=== PATIENT | female | born 1965 | race Asian ===

== ENCOUNTER → 2019-01-22 | Day surgery (SDC) | payer OTHER ==
--- NOTE | 2019-01-23 17:17 | PATH ---
Cytology Non-Gynecological Report Patient Name: NICHOLAS EMERY [facility]. Rec. #: [id number] /Age/Gender: 1965 (Age: 53) / F Account: [id number] Location: RADIOLOGY INTER Taken: 01/22/2019 Received: 01/22/2019 Reported: 01/23/2019 Physicians: Migue Palafox M.D. Specimen(s) Received LEFT THYROID FNA Clinical History Left, 1.65 x 0.73 x 1.40 cm Final Diagnosis THYROID, LEFT, FINE NEEDLE ASPIRATION: SATISFACTORY FOR EVALUATION. BETHES[place] CLASS II: BENIGN. CYTOLOGIC FINDINGS ARE CONSISTENT WITH A BENIGN FOLLICULAR NODULE. FOLLICULAR CELLS DISPERSED SHEETS, MACRO AND MICRO-FOLLICLES, AND SINGLE CELLS IN A BACKGROUND OF ABUNDANT COLLOID PRESENT. Electronically Signed Carolyne Chavarria M.D. Gross Description Received are nine direct smears, five of which are air-dried and Diff-Quik stained, and four of which are alcohol fixed and Pap stained. Also received is 20 ml of bloody formalin from which one cellblock is prepared.
== END | disposition home or self-care (01) ==
LOC: JRADIR 09:41
PROVIDERS: ATTEND Internal Medicine Endocrinology, Diabetes & Metabolism
PROC: 0G9G3ZX Drainage of Left Thyroid Gland Lobe, Percutaneous Approach, Diagnostic (ICD-10-PCS; principal; 2019-01-22)
DX: E04.1 Nontoxic single thyroid nodule (principal)
CPT/HCPCS: 76942; 88173; 88305-TC